=== PATIENT | male | born 1940 | race Asian ===

== ENCOUNTER → 2023-09-06 09:30 | Outpatient (REF) | payer MEDICARE, SELFPAY ==
[2023-09-06 09:53] LABS: % Eosinophils 1.3 % (0-6); % Immature Granulocytes 0.3 % (0-0.5); % Lymphocytes 32.2 % (20.5-51.1); % Monocytes 4.3 % (1.7-9.3); % Neutrophils 60.9 % (42.2-75.2); Absolute Basophils 0.1 10^3/uL (0-0.2); Absolute Eosinophils 0.1 10^3/uL (0-0.7); Absolute Lymphocytes 1.9 10^3/uL (1.2-3.4); Absolute Monocytes 0.3 10^3/uL (0.1-0.6); Absolute Neutrophils 3.7 10^3/uL (1.4-6.5); Hematocrit 29.8 % (39.0-52.0); Mean Corp Hgb Conc. 33.6 g/dL (33.0-37.0); Mean Corpuscular Hgb 30.2 pg (27.0-31.0); Mean Platelet Volume 10.7 fL (7.4-10.4); Nucleated Red Blood Cells % 0 % (-); Platelet Count 192 10^3/uL (130-400); Red Blood Cell Count 3.31 10^6/uL (4.70-6.10); Red Cell Dist. Width 16.2 % (11.5-14.5)
[2023-09-06 10:00] VITALS: BP 209/74; BP_SYST 52
[2023-09-06 10:01] LABS: INR 1.09; PT 14.2 Sec (11.4-14.6)
[2023-09-06 10:13] VITALS: BP 203/77
[2023-09-06] MEDS: NSS (PRESERVATIVE FREE) 0.25 ML IV (10:41)
[2023-09-06] MEDS: FLUSH (NSS) 1 FLUSH IV (10:41)
[2023-09-06] MEDS: ATIVAN 0.5 MG IV (10:41)
[2023-09-06 11:35] VITALS: BP 191/77
== END ==
LOC: RADI 09:30
PROVIDERS: ATTENDING PHYSICIAN Internal Medicine Hematology & Oncology; FAMILY PHYSICIAN Internal Medicine; REFERRING PHYSICIAN Physician Assistant
DX: C90.00 Multiple myeloma not having achieved remission (principal); D68.8 Other specified coagulation defects
CPT/HCPCS: 88305; 88311; 88312; 36415; 38222; 77012; 85025; 85610; 88313; 88341; 88342